=== PATIENT | female | born 1985 ===

== ENCOUNTER 2020-07-12 12:00 | Inpatient (IN) | payer BC ==
[2020-07-13] MEDS ORDERED: Lactated Ringers 1,000 ML IV SCH (04:00)
--- NOTE | 2020-07-13 04:03 | US ---
INDICATION: Rupture of membranes, evaluation presentation and ZOYA requested TECHNIQUE: Ultrasound limited OB pelvis transabdominal. Real-time bermudez-scale imaging of the fetus was performed. COMPARISON: None FINDINGS: Sonographic imaging demonstrates a single intrauterine gestation. heart rate: 140 bpm Orientation: Breech Placenta: Fundal Amniotic fluid: Subjectively normal with single deepest pocket (SDP) 2.6 cm with ZOYA of 4.9 cm. Cervix: Not visualized IMPRESSION: 1. Single viable intrauterine with breech presentation and ZOYA of 4.9 cm. Dictated by Yusuf Larose MD @ 07/13/2020 4:01:46 AM Dictated by: Yusuf Larose MD @ 07/13/2020 04:01:51 (Electronically Signed)
[2020-07-13] MEDS ORDERED: Morphine PF 10 MG/10 ML SDV ONE (04:33)
[2020-07-13] MEDS ORDERED: Citric Acid/Sodium Citrate Solution 30 ML Cup PO ONE (04:41)
[2020-07-13] MEDS ORDERED: Ketorolac 30 MG/ML SDV ONE (04:44)
[2020-07-13] MEDS ORDERED: Phenylephrine 1% 10 MG/ML SDV ONE (04:44)
[2020-07-13] MEDS ORDERED: ceFAZolin 1 GM Vial ONE (04:44)
[2020-07-13] MEDS ORDERED: Oxytocin 10 Units/1 ML SDV ONE (04:44)
[2020-07-13] MEDS ORDERED: Ondansetron 4 MG/2 ML SDV ONE (04:44)
[2020-07-13] MEDS ORDERED: Sodium Chloride 0.9% 20 ML ONE (04:44)
[2020-07-13] MEDS ORDERED: Oxytocin/0.9 % Sodium Chloride 30 UNIT/500 ML BAG IV SCH (04:45)
--- NOTE | 2020-07-13 04:53 | PCM.LDHP ---
L&D History of Present Illness - General Date of Service: 07/13/20 Admit Problem/Dx: Patient Status Order with Admit Dx/Problem 07/13/20 02:24 Patient Status [ADT] Routine 07/13/20 03:40 Patient Status [ADT] Routine Admission Diagnosis/Problem Admission Diagnosis/Problem Source of Information: Patient History Limitations: Reports: No Limitations - History of Present Illness Introduction:: 35 year old at 38w4d (IGNACIO 07/23/2020) presented to labor and delivery this morning with spontaneous rupture of membranes. Noted clear fluid, denies abdominal pain, vaginal bleeding or malodorous discharge. Reports good movement. complicated by insulin dependent gestational diabetes and maternal obesity. 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 Review of Systems - Review of Systems: Review Of Systems: See Below General: Reports: No Symptoms HEENT: Reports: No Symptoms Pulmonary: Reports: No Symptoms Cardiovascular: Reports: No Symptoms Gastrointestinal: Reports: No Symptoms Genitourinary: Reports: No Symptoms Musculoskeletal: Reports: No Symptoms Skin: Reports: No Symptoms Psychiatric: Reports: No Symptoms Neurological: Reports: No Symptoms Hematologic/Lymphatic: Reports: No Symptoms Immunologic: Reports: No Symptoms L&D Exam - Exam Exam: See Below - Vital Signs Weight: 270 lb - OB Specific Movement: Active Heart Tones: Present Heart Tones per Min: 130 Heart Rate (FHR) Variability: Moderate (6-25 bmp) Presentation: Breech Estimated Weight: 3600 grams by US - Escalante Score Escalante Score Cervix Position: Posterior Escalante Score Consistency: Firm Escalante Score Effacement: 31-50% Escalante Score Dilation: 1-2 cm Escalante Score Infant's Station: -3 Escalante Score Total: 2 - Exam General: Alert Lungs: Normal Respiratory Effort Cardiovascular: Regular Rate GI/Abdominal Exam: Soft, Non-Tender Genitourinary: Normal external exam Back Exam: Full Range of Motion Extremities: Normal Inspection, Non-Tender, Pedal Edema (1+) Skin: Warm, Dry, Intact Psychiatric: Normal Mood - Patient Data Lab Results Last 24 hrs: Laboratory Results - last 24 hr 07/13/20 07/13/20 Range/Units 02:40 03:43 WBC 11.48 H (4.0-11.0) K/uL RBC 3.73 L (4.30-5.90) M/uL Hgb 11.6 L (12.0-16.0) g/dL Hct 34.8 L (36.0-46.0) % MCV 93.3 (80.0-98.0) fL MCH 31.1 (27.0-32.0) pg MCHC 33.3 (31.0-37.0) g/dL RDW Std Deviation 46.9 (28.0-62.0) fl RDW Coeff of Zehra 14 (11.0-15.0) % Plt Count 250 (150-400) K/uL MPV 10.20 (7.40-12.00) fL Nucleated RBC % 0.0 /100WBC Nucleated RBCs # 0 K/uL Membrane Rupture POSITIVE Result Diagrams: 07/13/20 03:43 Problem List Initiated/Reviewed/Updated: Yes Orders Last 24hrs: Active Orders 24 hr Category Date Time Status Patient Status [ADT] Routine ADT 07/13/20 03:40 Active Notify Provider Vital Signs [RC] PRN Care 07/13/20 04:42 Active Peripheral IV Care [RC] . DIRECTED Care 07/13/20 03:13 Active Procedure Site Prep Instruct [RC] ASDIRECTED Care 07/13/20 04:41 Active Up ad Lydia [RC] ASDIRECTED Care 07/13/20 02:24 Active Verify Patient Consent Obtain [RC] ASDIRECTED Care 07/13/20 04:41 Active Vital Signs [RC] PER UNIT ROUTINE Care 07/13/20 02:24 Active PATIENT RETYPE [BBK] Routine Lab 07/13/20 04:16 Received RPR (SYPHILIS SERO) W/ RFLX [REF] Routine Lab 07/13/20 03:43 Received TYPE AND SCREEN [BBK] Routine Lab 07/13/20 03:43 Results Lactated Ringers [Ringers, Lactated] 1,000 ml Med 07/13/20 04:00 Active IV ASDIRECTED Oxytocin/0.9 % Sodium Chloride [Oxytocin 30 Unit/500 ML Med 07/13/20 04:45 Active -NS] 30 unit in 500 ml IV TITRATE ceFAZolin [Ancef] 3 gm Med 07/13/20 04:41 Active Premix Bag 1 bag IV ONETIME Peripheral IV Insertion Adult [OM.PC] Routine Oth 07/13/20 03:13 Ordered Schedule Procedure [COMM] Per Unit Routine Oth 07/13/20 04:41 Ordered Resuscitation Status Routine Resus Stat 07/13/20 02:24 Ordered Medication Orders Lactated Ringer's (Ringers, Lactated) 1,000 mls @ 150 mls/hr IV ASDIRECTED NAVJOT Last Admin: 07/13/20 04:01 Dose: 150 mls/hr Documented by: MARCOS Oxytocin/Sodium Chloride (Oxytocin 30 Unit/500 Ml-Ns) 30 unit in 500 mls @ 250 mls/hr IV TITRATE NAVJOT Cefazolin Sodium/Dextrose 3 gm (/ Premix) 75 mls @ 100 mls/hr IV ONETIME ONE Stop: 07/13/20 05:25 Assessment/Plan Comment:: Assessment: 35 year old at 38w4d (IGNACIO 07/23/2019) with spontaneous rupture of membranes and breech presentation Plan: - Admit to L&D for primary section due to breech presentation, amnisure positive - Rh positive, rubella immune, GBS negative - Gestational diabetes, on insulin. Bedside glucose 77 - Risks of primary section reviewed with patient including infection, bleeding with rare need for blood transfusion/hysterectomy, injury to surrounding structures and remote risk of . Questions elicited and answered. Anesthesia and nursing staff notified. Plan to proceed with procedure at 0500.
[2020-07-13] MEDS ORDERED: Acetaminophen/oxyCODONE 325-5 MG Tab PO PRN ×2 (05:10→06:51)
[2020-07-13] MEDS ORDERED: Nalbuphine 10 MG/1 ML Vial IVPUSH PRN (05:10)
--- NOTE | 2020-07-13 05:10 | PCM.PREANE ---
Preanesthetic Assessment - Anesthesia/Transfusion/Family Hx Anesthesia History: Prior Anesthesia Without Reaction (prev labor epidurals, no prior c sections) Family History of Anesthesia Reaction: No - Review of Systems General: No Symptoms Pulmonary: No Symptoms Cardiovascular: No Symptoms Gastrointestinal: Abdominal Pain Neurological: No Symptoms Other: Reports: None - Physical Assessment NPO Status Date: 07/12/20 Height: 5 ft 7 in Weight: 122.47 kg ASA Class: 3 Mental Status: Alert & Oriented x3 Airway Class: Mallampati = 2 Dentition: Reports: Normal Dentition ROM/Head Extension: Full Lungs: Clear to Auscultation, Normal Respiratory Effort Cardiovascular: Regular Rate, Regular Rhythm - Lab Values: Laboratory Last Values WBC 11.48 K/uL (4.0-11.0) H 07/13/20 03:43 RBC 3.73 M/uL (4.30-5.90) L 07/13/20 03:43 Hgb 11.6 g/dL (12.0-16.0) L 07/13/20 03:43 Hct 34.8 % (36.0-46.0) L 07/13/20 03:43 MCV 93.3 fL (80.0-98.0) 07/13/20 03:43 MCH 31.1 pg (27.0-32.0) 07/13/20 03:43 MCHC 33.3 g/dL (31.0-37.0) 07/13/20 03:43 RDW Std Deviation 46.9 fl (28.0-62.0) 07/13/20 03:43 RDW Coeff of Zehra 14 % (11.0-15.0) 07/13/20 03:43 Plt Count 250 K/uL (150-400) 07/13/20 03:43 MPV 10.20 fL (7.40-12.00) 07/13/20 03:43 Nucleated RBC % 0.0 /100WBC 07/13/20 03:43 Nucleated RBCs # 0 K/uL 07/13/20 03:43 Membrane Rupture POSITIVE 07/13/20 02:40 Blood Type O POSITIVE 07/13/20 03:43 Antibody Screen NEGATIVE 07/13/20 03:43 - Allergies Allergies/Adverse Reactions: Allergies Allergy/AdvReac Type Severity Reaction Status Date / Time No Known Allergies Allergy Verified 07/13/20 02:26 - Anesthesia Plan Pre-Op Medication Ordered: None - Acknowledgements Anesthesia Type Planned: Spinal Pt an Appropriate Candidate for the Planned Anesthesia: Yes Alternatives and Risks of Anesthesia Discussed w Pt/Guardian: Yes Pt/Guardian Understands and Agrees with Anesthesia Plan: Yes Additional Comments: PMH: insulin dependant gest DM with am glucose of 77 ( asymptomatic), morbid obesity with BMI of 42, breech presentation PLAN : spinal with intrathecal morphine for post op analgesia PreAnesthesia Questionnaire - Past Health History Medical/Surgical History: Denies 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: - HOME MEDS Home Medications: Home Meds Insulin Aspart [NovoLOG] 16 units SQ BIDMEALS 07/13/20 [History] Insulin Aspart [NovoLOG] 18 units SQ DAILY 07/13/20 [History] Insulin Glargine,Hum.Rec.Anlog [Lantus Solostar] 42 unit SQ DAILY 07/13/20 [History] Vitamins Tablet 1 tab PO DAILY 07/13/20 [History] Proair Hfa 90 mcg INH Q6H PRN 07/13/20 [History] - CURRENT (IN HOUSE) MEDS Current Meds: Current Medications Lactated Ringer's (Ringers, Lactated) 1,000 mls @ 150 mls/hr IV ASDIRECTED [facility] Last Admin: 07/13/20 04:01 Dose: 150 mls/hr Documented by: Oxytocin/Sodium Chloride (Oxytocin 30 Unit/500 Ml-Ns) 30 unit in 500 mls @ 250 mls/hr IV TITRATE [facility] Cefazolin Sodium/Dextrose 3 gm (/ Premix) 75 mls @ 100 mls/hr IV ONETIME ONE Stop: 07/13/20 05:25 Discontinued Medications Cefazolin Sodium (Ancef) Confirm Administered Dose 2 gm .ROUTE .STK-MED ONE Stop: 07/13/20 04:45 Citric Acid/Sodium Citrate (Bicitra Solution) 30 ml PO ONETIME ONE Stop: 07/13/20 04:42 Sodium Chloride (Normal Saline) Confirm Administered Dose 20 mls @ as directed .ROUTE .STK-MED ONE Stop: 07/13/20 04:45 Ketorolac Tromethamine (Toradol) Confirm Administered Dose 30 mg .ROUTE .STK-MED ONE Stop: 12/30/20 04:45 Morphine Sulfate (Duramorph Pf) Confirm Administered Dose 10 mg .ROUTE .STK-MED ONE Stop: 07/13/20 04:34 Ondansetron HCl (Zofran) Confirm Administered Dose 4 mg .ROUTE .STK-MED ONE Stop: 07/13/20 04:45 Oxytocin (Pitocin) Confirm Administered Dose 20 unit .ROUTE .STK-MED ONE Stop: 07/13/20 04:45 Phenylephrine HCl (Sagar-Synephrine) Confirm Administered Dose 10 mg .ROUTE .STK- MED ONE Stop: 07/13/20 04:45
[2020-07-13] MEDS ORDERED: Lidocaine 2% 100 MG/5 ML Syringe ONE (05:36)
[2020-07-13] MEDS ORDERED: Lidocaine 2% with EPINEPHrine 1:200,000 20 ML SDV ONE (05:38)
[2020-07-13] MEDS ORDERED: fentaNYL 100 MCG/2 ML SDV ONE ×2 (05:48→06:31)
[2020-07-13] MEDS ORDERED: Propofol 200 MG/20 ML SDV ONE ×2 (05:57→06:17)
[2020-07-13] MEDS ORDERED: fentaNYL 250 MCG/5 ML SDV ONE (06:16)
[2020-07-13] MEDS ORDERED: Ondansetron 4 MG/2 ML SDV IVPUSH PRN (06:51)
[2020-07-13] MEDS ORDERED: Bisacodyl 10 MG Supp RECTAL PRN (06:51)
[2020-07-13] MEDS ORDERED: Lanolin 100% Cream 7 GM Tube TOP PRN (06:51)
[2020-07-13] MEDS ORDERED: Oxytocin 10 Units/1 ML SDV IM PRN (06:51)
[2020-07-13] MEDS ORDERED: diphenhydrAMINE 50 MG/ML SDV IVPUSH PRN (06:51)
[2020-07-13] MEDS ORDERED: Glucagon,Human Recombinant 1 MG Vial IM PRN (06:56)
[2020-07-13] MEDS ORDERED: 50% Dextrose in Water 50 ML Syringe IV PRN (06:56)
[2020-07-13] MEDS ORDERED: Naloxone 0.4 MG/ML SDV IVPUSH PRN (06:58)
[2020-07-13] MEDS ORDERED: Oxytocin/Lactated Ringers 30 UNIT/500 ML BAG IV SCH (07:00)
[2020-07-13] MEDS ORDERED: fentaNYL 100 MCG/2 ML SDV IVPUSH PRN (07:04)
[2020-07-13] MEDS ORDERED: Morphine 2 MG/ML SYRINGE IVPUSH PRN (07:04)
--- NOTE | 2020-07-13 07:04 | PCM.OPNOTE ---
- General Post-Op/Procedure Note Date of Surgery/Procedure: 07/13/20 Operative Procedure(s): Primary lower transverse section Findings: Normal appearing male infant in leeanna breech presentation. Clear amniotic fluid. APGARs 8/8. Weight not yet available. Normal appearing uterus, fallopian tubes and ovaries. Pre Op Diagnosis: 1. TIUP at 38w4d. 2. Gestational diabetes, insulin dependent. 3. Breech presentation. 4. Maternal obesity. 5. Grandmultiparity. 6. History of asthma Post-Op Diagnosis: 1. TIUP at 38w4d. 2. Gestational diabetes, insulin dependent. 3. Breech presentation. 4. Maternal obesity. 5. Grandmultiparity. 6. History of asthma Anesthesia Technique: Epidural, General ET Tube Primary Surgeon: Patricia Paul Anesthesia Provider: Earle Mota Radiator Mechanic: Joana Hedrick Reason Radiator Mechanic Was Necessary: Maternal obesity Fluid Replacement, Intraop: 1,500 Output, Urine Amount: 200 (clear urine) EBL in mLs: 600 Complications: None known Condition: Good Free Text/Narrative:: Dictation #[id number]
[2020-07-13] MEDS ORDERED: Acetaminophen 1,000 MG in Premix Bag 1 BAG IV PRN (07:05)
[2020-07-13] MEDS: fentaNYL 100 MCG/2 ML SDV IVPUSH PRN ×3 (07:12→07:41)
--- NOTE | 2020-07-13 07:34 | PCM.POSTAN ---
POST ANESTHESIA ASSESSMENT - MENTAL STATUS Mental Status: Alert, Oriented - VITAL SIGNS Vital Signs: Last Vital Signs Temp 36.1 C 07/13/20 06:59 Pulse 96 07/13/20 06:59 Resp 16 07/13/20 06:59 BP 125/84 07/13/20 06:59 Pulse Ox 99 07/13/20 06:59 - RESPIRATORY Respiratory Status: Respiratory Rate WNL - CARDIOVASCULAR CV Status: Pulse Rate WNL - GASTROINTESTINAL GI Status: No Symptoms - POST OP HYDRATION Hydration Status: Adequate & Stable
[2020-07-13] MEDS ORDERED: Morphine Sulfate in 0.9 % NaCl 50 MG/50 ML PCA Bag IV SCH ×2 (08:15→08:30)
[2020-07-13] MEDS ORDERED: MORPHINE IV SCH (08:15)
[2020-07-13] MEDS ORDERED: SODIUM CHLORIDE 0.9% IV SCH (08:15)
--- NOTE | 2020-07-13 08:37 | OR ---
SURGEON: PATRICIA PAUL MD DATE OF PROCEDURE: 07/13/2020 PREOPERATIVE DIAGNOSES: 1. Term intrauterine at 38 weeks and 4 days gestation. 2. Gestation diabetes, insulin dependent. 3. Breech presentation. 4. Maternal obesity. 5. Grand multiparity. 6. History of asthma. POSTOPERATIVE DIAGNOSES: 1. Term intrauterine at 38 weeks and 4 days gestation. 2. Gestation diabetes, insulin dependent. 3. Breech presentation. 4. Maternal obesity. 5. Grand multiparity. 6. History of asthma. PROCEDURE: Primary low-transverse section. PRIMARY SURGEON: Patricia Paul MD LITHODUPLICATOR OPERATOR: Joana Hedrick MD ANESTHESIA: Epidural anesthesia was placed with some difficulty. However, pain relief was not adequate, so the patient was placed under general anesthesia with an endotracheal tube. COMPLICATIONS: None known. ESTIMATED BLOOD LOSS: 600 mL. INTRAVENOUS FLUIDS: 1500 mL of crystalloid. URINE OUTPUT: 200 mL of clear urine at the end of the procedure. INDICATIONS: A 35-year-old 11, para 5, at 38 weeks and 4 days, presented to Labor and Delivery with spontaneous rupture of membranes of clear fluid and dilated to 1 to 2 cm. The fetus was found to be in a leeanna breech presentation. Decision was made to proceed with a primary low-transverse section. FINDINGS: A normal-appearing male in a leeanna breech presentation. Clear amniotic fluid. scores 8 and 8. Weight is not yet available. Normal-appearing uterus, bilateral ovaries and fallopian tubes. PROCEDURE IN DETAIL: The patient was taken to the operating room, where epidural anesthesia was placed with some difficulty; however, pain relief was not adequate, so the patient was then placed under general anesthesia with endotracheal tube intubation. She was prepped and draped in normal sterile fashion and in dorsal supine position with a leftward tilt. A skin incision was made with a scalpel and carried out to the underlying layer of fascia with the Bovie cautery, which was incised in the midline. The fascial incision was then extended laterally using Rios scissors bilaterally. The superior aspect of the fascial incision was then grasped with Kevin clamps, elevated, and dissected off the rectus muscles with Mary. The inferior aspect of the fascial incision was then grasped with Kochers and in a likewise manner was elevated and dissected off with Mary. The peritoneum was then entered using blunt dissection with hemostats and sharp dissection with Metzenbaum scissors. It was then extended with good visualization of the bladder. The Horcaio O-Ring was then inserted into the abdominal cavity. The uterine incision was then created in a transverse fashion in the lower uterine segment with a scalpel and extended digitally. Clear fluid was then noted. The infant was found to be in a leeanna breech position with back to maternal left. The 's buttocks were then grasped and delivered through the hysterotomy site. The left lower extremity was then reduced through the hysterotomy, followed by the right. The infant's abdomen was then wrapped in a wet towel and elevated. The 's left arm was then reduced across his chest and delivered, followed in a similar fashion with the right. The head delivered with slight flexion, atraumatically. The 's nose and mouth were suctioned with a bulb. The cord was clamped, cut, and handed off to the waiting hospitalist and nursing staff. The placenta was then expressed, the uterus exteriorized, and the abdomen cleared of all clots and debris. The uterine incision was then repaired in a running locked fashion with 0 Monocryl. A small extension in the lower uterine segment was noted on the left lateral portion of the incision and was reapproximated with 0 Monocryl. Excellent hemostasis was noted. The uterus was then returned to the abdomen. The gutters were cleared of all clots and debris. The Horacio O was then removed. The fascia was then closed with 0 Vicryl in a running fashion. The incision was irrigated and hemostasis assured. The subcutaneous tissue was closed with 2-0 plain gut. The skin was closed with 3-0 Vicryl on a Pee needle. Sponge, lap, and needle counts were correct x2. Prophylactic antibiotics were given prior to the procedure. The patient was then transferred to the recovery room, Labor and Delivery, in stable condition. FIONA / DAX /[id number] BECK
[2020-07-13] MEDS: Lactated Ringers 1,000 ML IV SCH ×2 (08:47→17:22)
[2020-07-13] MEDS: Insulin Aspart 100 Units/ML 3 ML Pen SUBCUT SCH ×2 (10:45→17:07)
[2020-07-13] MEDS: Ketorolac 30 MG/ML SDV IVPUSH SCH ×3 (13:28→20:30)
[2020-07-13] MEDS: Docusate Sodium 100 MG Cap PO SCH (20:31)
[2020-07-13] MEDS ORDERED: Insulin Glargine,Human Rec. Analog 100 Units/ML 3 ML Pen SUBCUT SCH (21:00)
[2020-07-14] MEDS: Ketorolac 30 MG/ML SDV IVPUSH SCH ×2 (02:00→07:20)
[2020-07-14] MEDS ORDERED: Lactated Ringers 1,000 ML IV SCH (02:15)
--- NOTE | 2020-07-14 03:02 | PCM.PNPP ---
- General Info Date of Service: 07/14/20 Subjective Update: Patient reports feeling sore but is otherwise doing well. Tolerating oral intake. Bowles catheter recently removed, has not attempted to void yet. Functional Status: Reports: Tolerating Diet - Review of Systems General: Reports: No Symptoms HEENT: Reports: No Symptoms Pulmonary: Reports: No Symptoms Cardiovascular: Reports: No Symptoms Gastrointestinal: Reports: Abdominal Pain Genitourinary: Reports: No Symptoms Musculoskeletal: Reports: No Symptoms Skin: Reports: No Symptoms Neurological: Reports: No Symptoms Psychiatric: Reports: No Symptoms - Patient Data Vital Signs - Most Recent: Last Vital Signs Temp 36.3 C 07/14/20 00:30 Pulse 63 07/14/20 02:00 Resp 18 07/14/20 02:00 BP 129/80 07/14/20 00:30 Pulse Ox 96 07/14/20 01:00 Weight - Most Recent: 122.47 kg I&O - Last 24 Hours: Intake & Output 07/13/20 07/13/20 07/14/20 14:59 22:59 06:59 Intake Total 3300 Output Total 600 Balance 2700 Lab Results - Last 24 Hours: Laboratory Results - last 24 hr 07/13/20 07/13/20 07/13/20 Range/Units 03:43 03:43 04:03 WBC 11.48 H (4.0-11.0) K/uL RBC 3.73 L (4.30-5.90) M/uL Hgb 11.6 L (12.0-16.0) g/dL Hct 34.8 L (36.0-46.0) % MCV 93.3 (80.0-98.0) fL MCH 31.1 (27.0-32.0) pg MCHC 33.3 (31.0-37.0) g/dL RDW Std Deviation 46.9 (28.0-62.0) fl RDW Coeff of Zehra 14 (11.0-15.0) % Plt Count 250 (150-400) K/uL MPV 10.20 (7.40-12.00) fL Nucleated RBC % 0.0 /100WBC Nucleated RBCs # 0 K/uL POC Glucose 77 (60-110) mg/dL Blood Type O POSITIVE Antibody Screen NEGATIVE 07/13/20 07/13/20 07/13/20 Range/Units 08:06 10:44 11:19 WBC (4.0-11.0) K/uL RBC (4.30-5.90) M/uL Hgb (12.0-16.0) g/dL Hct (36.0-46.0) % MCV (80.0-98.0) fL MCH (27.0-32.0) pg MCHC (31.0-37.0) g/dL RDW Std Deviation (28.0-62.0) fl RDW Coeff of Zehra (11.0-15.0) % Plt Count (150-400) K/uL MPV (7.40-12.00) fL Nucleated RBC % /100WBC Nucleated RBCs # K/uL POC Glucose 106 76 95 (60-110) mg/dL Blood Type Antibody Screen 07/13/20 07/13/20 07/13/20 Range/Units 14:39 15:51 20:42 WBC (4.0-11.0) K/uL RBC (4.30-5.90) M/uL Hgb (12.0-16.0) g/dL Hct (36.0-46.0) % MCV (80.0-98.0) fL MCH (27.0-32.0) pg MCHC (31.0-37.0) g/dL RDW Std Deviation (28.0-62.0) fl RDW Coeff of Zehra (11.0-15.0) % Plt Count (150-400) K/uL MPV (7.40-12.00) fL Nucleated RBC % /100WBC Nucleated RBCs # K/uL POC Glucose 62 84 120 H (60-110) mg/dL Blood Type Antibody Screen Med Orders - Current: Current Medications Bisacodyl (Dulcolax) 10 mg RECTAL ONETIME PRN PRN Reason: Constipation Dextrose/Water (Dextrose 50% In Water) 50 ml IV ASDIRECTED PRN PRN Reason: Hypoglycemia Diphenhydramine HCl (Benadryl) 25 mg IVPUSH Q6H PRN PRN Reason: Itching or Nausea Docusate Sodium (Colace) 100 mg PO BID [facility] Last Admin: 07/13/20 20:31 Dose: 100 mg Documented by: Emollient Ointment (Lansinoh Hpa) 0 gm TOP ASDIRECTED PRN PRN Reason: Sore Nipples Fentanyl (Sublimaze) 50 mcg IVPUSH Q5M PRN PRN Reason: Pain (severe 7-10) Stop: 07/14/20 05:11 Last Admin: 07/13/20 07:41 Dose: 50 mcg Documented by: Glucagon (Glucagen) 1 mg IM ASDIRECTED PRN PRN Reason: Hypoglycemia Oxytocin/Sodium Chloride (Oxytocin 30 Unit/500 Ml-Ns) 30 unit in 500 mls @ 250 mls/hr IV TITRATE [facility] Oxytocin/Lactated Ringer's (Pitocin In Lr 30 Units/500 Ml) 30 unit in 500 mls @ 999 mls/hr IV TITRATE [facility]; Protocol Lactated Ringer's (Ringers, Lactated) 1,000 mls @ 50 mls/hr IV ASDIRECTED [facility] Ibuprofen (Motrin) 800 mg PO Q8H PRN PRN Reason: mild pain or fever Insulin Aspart (Novolog) 0 unit SUBCUT TIDAC [facility] Last Admin: 07/13/20 17:07 Dose: Not Given Documented by: Insulin Glargine (Lantus Solostar) 20 units SUBCUT BEDTIME [facility] Last Admin: 07/13/20 22:06 Dose: 20 units Documented by: Ketorolac Tromethamine (Toradol) 30 mg IVPUSH Q6H [facility] Stop: 07/14/20 07:01 Last Admin: 07/14/20 02:00 Dose: 30 mg Documented by: Morphine Sulfate/Sodium Chloride (Morphine-Ns 50 Mg/50 Ml) 0 mg IV ASDIRECTED S ; Protocol Last Admin: 07/13/20 09:05 Dose: 1 mg Documented by: Naloxone HCl (Narcan) 0.4 mg IVPUSH Q2M PRN PRN Reason: Respiratory Distress Ondansetron HCl (Zofran) 4 mg IVPUSH Q4H PRN PRN Reason: Nausea/Vomiting Oxycodone/Acetaminophen (Percocet 325-5 Mg) 1 tab PO ONETIME PRN PRN Reason: Pain (moderate 4-6) Oxycodone/Acetaminophen (Percocet 325-5 Mg) 1 tab PO Q4H PRN PRN Reason: Pain (moderate 4-6) Oxycodone/Acetaminophen (Percocet 325-5 Mg) 2 tab PO Q4H PRN PRN Reason: Pain (moderate 4-6) Oxytocin (Pitocin) 10 unit IM ASDIRECTED PRN PRN Reason: Excessive Vaginal Bleeding Discontinued Medications Cefazolin Sodium (Ancef) Confirm Administered Dose 2 gm .ROUTE .STK-MED ONE Stop: 07/13/20 04:45 Citric Acid/Sodium Citrate (Bicitra Solution) 30 ml PO ONETIME ONE Stop: 07/13/20 04:42 Fentanyl (Sublimaze) Confirm Administered Dose 100 mcg .ROUTE .STK-MED ONE Stop: 07/13/20 05:49 Fentanyl (Sublimaze) Confirm Administered Dose 250 mcg .ROUTE .STK-MED ONE Stop: 07/13/20 06:17 Fentanyl (Sublimaze) Confirm Administered Dose 100 mcg .ROUTE .STK-MED ONE Stop: 07/13/20 06:32 Fentanyl (Sublimaze) 50 mcg IVPUSH Q5M PRN PRN Reason: Pain Lactated Ringer's (Ringers, Lactated) 1,000 mls @ 150 mls/hr [facility] Last Admin: 07/13/20 04:01 Dose: 150 mls/hr Documented by: Cefazolin Sodium/Dextrose 3 gm (/ Premix) 75 mls @ 100 mls/hr IV ONETIME ONE Stop: 07/13/20 05:25 Sodium Chloride (Normal Saline) Confirm Administered Dose 20 mls @ as directed .ROUTE .STK-MED ONE Stop: 07/13/20 04:45 Lactated Ringer's (Ringers, Lactated) 1,000 mls @ [facility] Last Admin: 07/13/20 17:22 Dose: 125 mls/hr Documented by: Acetaminophen 1,000 mg/ Premix 100 mls @ 400 mls/hr IV ONETIME PRN PRN Reason: Pain Acetaminophen (Ofirmev) Confirm Administered Dose 100 mls @ as directed .ROUTE .STK-MED ONE Stop: 07/13/20 07:09 Last Admin: 07/13/20 07:32 Dose: 400 mls/hr Documented by: Ketorolac Tromethamine (Toradol) Confirm Administered Dose 30 mg .ROUTE .STK-MED ONE Stop: 07/13/20 04:45 Lidocaine HCl (Xylocaine 2%) Confirm Administered Dose 100 mg .ROUTE .STK-MED ONE Stop: 07/13/20 05:37 Lidocaine/Epinephrine (Xylocaine-Mpf 2%-Epi 1:200,000) Confirm Administered Dose 20 ml .ROUTE .STK-MED ONE Stop: 07/13/20 05:39 Morphine Sulfate (Duramorph Pf) Confirm Administered Dose 10 mg .ROUTE .STK-MED ONE Stop: 07/13/20 04:34 Nalbuphine HCl (Nubain) 2.5 mg IVPUSH Q3H PRN PRN Reason: Pruritis Stop: 07/14/20 05:11 Ondansetron HCl (Zofran) Confirm Administered Dose 4 mg .ROUTE .STK-MED ONE Stop: 07/13/20 04:45 Oxytocin (Pitocin) Confirm Administered Dose 20 unit .ROUTE .STK-MED ONE Stop: 07/13/20 04:45 Phenylephrine HCl (Sagar-Synephrine) Confirm Administered Dose 10 mg .ROUTE .STK- MED ONE Stop: 07/13/20 04:45 Propofol (Diprivan 20 Ml) Confirm Administered Dose 0 mg .ROUTE .STK-MED ONE Stop: 07/13/20 05:58 Propofol (Diprivan 20 Ml) Confirm Administered Dose 200 mg .ROUTE .STK-MED ONE Stop: 07/13/20 06:18 - Interaction Disposition, : [place] to Nursery Infant Feeding: Breastfed ; Nursed Well Support Person: - Recovery Exam Fundal Tone: Firm Fundal Level: 1 Fingerbreadths Below Umbilicus Fundal Placement: Midline Lochia Amount: Scant Bladder Status: Nonpalpable Urinary Elimination: Not Voiding (has not yet voided since catheter removed) - Exam General: Alert, Oriented Neck: Supple Lungs: Normal Respiratory Effort GI/Abdominal Exam: Soft, No Distention, Tender (appropriate tenderness to palpation) Extremities: Non-Tender Skin: Warm, Dry, Intact Wound/Incisions: Dressing Dry and Intact Neurological: No New Focal Deficit Psy/Mental Status: Alert, Normal Affect, Normal Mood - Problem List & Annotations (1) S/P primary low transverse SNOMED Code(s): 187211905, 99526030, 560653771, 529625355, 156727564 Code(s): Z98.891 - HISTORY OF UTERINE SCAR FROM PREVIOUS SURGERY Status: Acute Current Visit: Yes (2) Maternal care for breech presentation, delivered SNOMED Code(s): 18214384, 497706667, 985761283 Code(s): O32.1XX0 - MATERNAL CARE FOR BREECH PRESENTATION, UNSP Status: Acute Current Visit: Yes (3) Gestational diabetes mellitus (GDM) SNOMED Code(s): 08307194 Code(s): O24.419 - GESTATIONAL DIABETES MELLITUS IN , UNSP CONTROL Status: Acute Current Visit: Yes Qualifiers: Gestational diabetes mellitus control: insulin-controlled - Problem List Review Problem List Initiated/Reviewed/Updated: Yes - My Orders Last 24 Hours: My Active Orders 07/13/20 06:51 Patient Status [ADT] Routine Ambulate [RC] PER UNIT ROUTINE Communication Order [RC] PER UNIT ROUTINE Communication Order [RC] PER UNIT ROUTINE Communication Order [RC] Per Unit Routine Intake and Output [RC] Q8H May Shower [RC] ASDIRECTED Notify Provider Intake and Out [RC] ASDIRECTED Notify Provider Vital Signs [RC] ASDIRECTED RT Incentive Spirometry [RC] Q2HWA Urinary Catheter Removal [RC] PER UNIT ROUTINE Acetaminophen/oxyCODONE [Percocet 325-5 MG] 1 tab PO Q4H PRN Acetaminophen/oxyCODONE [Percocet 325-5 MG] 2 tab PO Q4H PRN Ibuprofen [Motrin] 800 mg PO Q8H PRN Lanolin [Lansinoh HPA] See Dose Instructions TOP ASDIRECTED PRN Ondansetron [Zofran] 4 mg IVPUSH Q4H PRN Oxytocin [Pitocin] 10 unit IM ASDIRECTED PRN bisacodyL [Dulcolax] 10 mg RECTAL ONETIME PRN diphenhydrAMINE [Benadryl] 25 mg IVPUSH Q6H PRN Abdominal Binder [OM.PC] Routine Assess Lochia [WOMSER] Per Unit Routine Assess Uterine Involution [WOMSER] Per Unit Routine Breast Pump [WOMSER] Per Unit Routine DVT/VTE Prophylaxis Reflex [OM.PC] Routine Heat Therapy [OM.PC] Routine Ice Therapy [OM.PC] Routine Peripheral IV Discontinue [OM.PC] Routine Sequential Compression Device [OM.PC] Per Unit Routine 07/13/20 06:52 Antiembolic Devices [RC] PER UNIT ROUTINE 12/30/20 06:55 Antiembolic Devices [RC] .Routine VTE/DVT Education [RC] PER UNIT ROUTINE 07/13/20 06:56 Blood Glucose Check, Bedside [RC] TIDMEALS Dextrose 50% in Water 50 ml IV ASDIRECTED PRN Glucagon,Human Recombinant [GlucaGen] 1 mg IM ASDIRECTED PRN 07/13/20 06:58 Communication Order [RC] STAT Notify Provider [RC] PRN Pulse Oximetry [RC] CONTINUOUS Naloxone [Narcan] 0.4 mg IVPUSH Q2M PRN Medication Discontinuation Instructions [OM.PC] Stat 07/13/20 07:00 Ketorolac [Toradol] 30 mg IVPUSH Q6H Oxytocin/Lactated Ringers [Pitocin in LR 30 Units/500 ML] 30 unit in 500 ml IV TITRATE 07/13/20 07:30 Insulin Aspart [NovoLOG] See Dose Instructions SUBCUT TIDAC 07/13/20 08:30 Morphine Sulfate in 0.9 % NaCl [Morphine-Ns 50 mg/50 ml] See Protocol IV ASDIRECTED 07/13/20 Lunch [employer] Diet [DIET] 07/13/20 14:54 Blood Glucose Check, Bedside [RC] DAILY 07/13/20 21:00 Docusate Sodium [Colace] 100 mg PO BID Insulin Glarg,Human.Rec.Analog [LantUS Solostar] 20 units SUBCUT BEDTIME 07/14/20 02:15 Lactated Ringers [Ringers, Lactated] 1,000 ml IV ASDIRECTED 07/14/20 05:11 HEMOGLOBIN/HEMATOCRIT,HH [HEME] Routine - Assessment Assessment:: 35yo P5 s/p 1LTCS at 38w4d for breech presentation and rupture of membranes, POD#1 - Plan Plan:: 1. Continue routine postop care. D/C Bowles this AM. Transition from LIQUID SUGAR FORTIFIER to oral pain medication. 2. Gestational diabetes, suspect type 2 diabetes as diagnosed on early 3hr GTT. Continue Lantus 20U at bedtime, Novolog 8/8/9U with meals. Monitor blood sugars. 3. Plan for discharge home on POD#2 if infant cleared, blood sugars controlled, and pain controlled.
--- NOTE | 2020-07-14 07:29 | PCM48HPAN ---
Post Anesthesia Note - EVALUATION WITHIN 48HRS OF ANESTHETIC Vital Signs in Normal Range: Yes Patient Participated in Evaluation: Yes Respiratory Function Stable: Yes Airway Patent: Yes Cardiovascular Function Stable: Yes Hydration Status Stable: Yes Pain Control Satisfactory: Yes Nausea and Vomiting Control Satisfactory: Yes Mental Status Recovered: Yes Vital Signs: Last Vital Signs Temp 37.1 C 07/14/20 05:00 Pulse 77 07/14/20 05:00 Resp 15 07/14/20 05:00 BP 143/90 H 07/14/20 05:00 Pulse Ox 96 07/14/20 05:00
[2020-07-14] MEDS: Insulin Aspart 100 Units/ML 3 ML Pen SUBCUT SCH ×2 (08:18→11:56)
[2020-07-14] MEDS: Docusate Sodium 100 MG Cap PO SCH ×2 (10:10→21:07)
[2020-07-14] MEDS: Acetaminophen/oxyCODONE 325-5 MG Tab PO PRN ×3 (11:35→21:08)
[2020-07-14] MEDS: Ibuprofen 800 MG Tab PO PRN (14:17)
[2020-07-15] MEDS: Docusate Sodium 100 MG Cap PO SCH (08:02)
[2020-07-15] MEDS: Acetaminophen/oxyCODONE 325-5 MG Tab PO PRN ×2 (08:02→12:01)
[2020-07-15] MEDS: Ibuprofen 800 MG Tab PO PRN (08:02)
--- NOTE | 2020-07-15 10:19 | PCM.PNPP ---
- General Info Date of Service: 07/15/20 Functional Status: Reports: Pain Controlled - Review of Systems General: Reports: No Symptoms HEENT: Reports: No Symptoms Pulmonary: Reports: No Symptoms Cardiovascular: Reports: No Symptoms Gastrointestinal: Reports: No Symptoms Genitourinary: Reports: No Symptoms Musculoskeletal: Reports: No Symptoms Skin: Reports: No Symptoms Neurological: Reports: No Symptoms Psychiatric: Reports: No Symptoms - General Info Date of Service: 07/15/20 - Patient Data Vital Signs - Most Recent: Last Vital Signs Temp 36.3 C 07/15/20 07:45 Pulse 67 07/15/20 07:45 Resp 18 07/15/20 07:45 BP 123/77 07/15/20 07:45 Pulse Ox 98 07/15/20 07:45 Weight - Most Recent: 122.47 kg Lab Results - Last 24 Hours: Laboratory Results - last 24 hr 07/15/20 Range/Units 05:49 POC Glucose 88 (60-110) mg/dL Med Orders - Current: Current Medications Bisacodyl (Dulcolax) 10 mg RECTAL ONETIME PRN PRN Reason: Constipation Dextrose/Water (Dextrose 50% In Water) 50 ml IV ASDIRECTED PRN PRN Reason: Hypoglycemia Diphenhydramine HCl (Benadryl) 25 mg IVPUSH Q6H PRN PRN Reason: Itching or Nausea Docusate Sodium (Colace) 100 mg PO BID [facility]JOT Last Admin: 07/15/20 08:02 Dose: 100 mg Documented by: Emollient Ointment (Lansinoh Hpa) 0 gm TOP ASDIRECTED PRN PRN Reason: Sore Nipples Last Admin: 07/15/20 08:02 Dose: 7 gm Documented by: Glucagon (Glucagen) 1 mg IM ASDIRECTED PRN PRN Reason: Hypoglycemia Oxytocin/Sodium Chloride (Oxytocin 30 Unit/500 Ml-Ns) 30 unit in 500 mls @ 250 mls/hr IV TITRATE [facility] Oxytocin/Lactated Ringer's (Pitocin In Lr 30 Units/500 Ml) 30 unit in 500 mls @ 999 mls/hr IV TITRATE [facility]; Protocol Lactated Ringer's (Ringers, Lactated) 1,000 mls @ 50 mls/hr IV ASDIRECTED [facility] Ibuprofen (Motrin) 800 mg PO Q8H PRN PRN Reason: mild pain or fever Last Admin: 07/15/20 08:02 Dose: 800 mg Documented by: Naloxone HCl (Narcan) 0.4 mg IVPUSH Q2M PRN PRN Reason: Respiratory Distress Ondansetron HCl (Zofran) 4 mg IVPUSH Q4H PRN PRN Reason: Nausea/Vomiting Oxycodone/Acetaminophen (Percocet 325-5 Mg) 1 tab PO Q4H PRN PRN Reason: Pain (moderate 4-6) Last Admin: 07/15/20 08:02 Dose: 1 tab Documented by: Oxycodone/Acetaminophen (Percocet 325-5 Mg) 2 tab PO Q4H PRN PRN Reason: Pain (moderate 4-6) Oxytocin (Pitocin) 10 unit IM ASDIRECTED PRN PRN Reason: Excessive Vaginal Bleeding Discontinued Medications Cefazolin Sodium (Ancef) Confirm Administered Dose 2 gm .ROUTE .STK-MED ONE Stop: 07/13/20 04:45 Citric Acid/Sodium Citrate (Bicitra Solution) 30 ml PO ONETIME ONE Stop: 07/13/20 04:42 Last Admin: 07/14/20 07:10 Dose: Not Given Documented by: Fentanyl (Sublimaze) 50 mcg IVPUSH Q5M PRN PRN Reason: Pain (severe 7-10) Stop: 07/14/20 05:11 Last Admin: 07/13/20 07:41 Dose: 50 mcg Documented by: Fentanyl (Sublimaze) Confirm Administered Dose 100 mcg .ROUTE .STK-MED ONE Stop: 07/13/20 05:49 Fentanyl (Sublimaze) Confirm Administered Dose 250 mcg .ROUTE .STK-MED ONE Stop: 07/13/20 06:17 Fentanyl (Sublimaze) Confirm Administered Dose 100 mcg .ROUTE .STK-MED ONE Stop: 07/13/20 06:32 Fentanyl (Sublimaze) 50 mcg IVPUSH Q5M PRN PRN Reason: Pain Lactated Ringer's (Ringers, Lactated) 1,000 mls @ 150 mls/hr IV ASDIRECTED [facility] Last Admin: 07/13/20 04:01 Dose: 150 mls/hr Documented by: Cefazolin Sodium/Dextrose 3 gm (/ Premix) 75 mls @ 100 mls/hr IV ONETIME ONE Stop: 07/13/20 05:25 Last Admin: 07/14/20 07:10 Dose: Not Given Documented by: Sodium Chloride (Normal Saline) Confirm Administered Dose 20 mls @ as directed .ROUTE .STK-MED ONE Stop: 07/13/20 04:45 Lactated Ringer's (Ringers, Lactated) 1,000 mls @ 125 mls/hr IV ASDIRECTED [facility] Last Admin: 07/13/20 17:22 Dose: 125 mls/hr Documented by: Acetaminophen 1,000 mg/ Premix 100 mls @ 400 mls/hr IV ONETIME PRN PRN Reason: Pain Acetaminophen (Ofirmev) Confirm Administered Dose 100 mls @ as directed .ROUTE .STK-MED ONE Stop: 07/13/20 07:09 Last Admin: 07/13/20 07:32 Dose: 400 mls/hr Documented by: Insulin Aspart (Novolog) 0 unit SUBCUT TIDAC [facility] Last Admin: 07/14/20 11:56 Dose: Not Given Documented by: Insulin Glargine (Lantus Solostar) 20 units SUBCUT BEDTIME [facility] Last Admin: 07/13/20 22:06 Dose: 20 units Documented by: Ketorolac Tromethamine (Toradol) Confirm Administered Dose 30 mg .ROUTE .STK-MED ONE Stop: 07/13/20 04:45 Ketorolac Tromethamine (Toradol) 30 mg IVPUSH Q6H [facility] Stop: 07/14/20 07:01 Last Admin: 07/14/20 07:20 Dose: 30 mg Documented by: Lidocaine HCl (Xylocaine 2%) Confirm Administered Dose 100 mg .ROUTE .STK-MED ONE Stop: 07/13/20 05:37 Lidocaine/Epinephrine (Xylocaine-Mpf 2%-Epi 1:200,000) Confirm Administered Dose 20 ml .ROUTE .STK-MED ONE Stop: 07/13/20 05:39 Morphine Sulfate (Duramorph Pf) Confirm Administered Dose 10 mg .ROUTE .STK-MED ONE Stop: 07/13/20 04:34 Morphine Sulfate/Sodium Chloride (Morphine-Ns 50 Mg/50 Ml) 0 mg IV ASDIRECTED S ; Protocol Last Admin: 07/13/20 09:05 Dose: 1 mg Documented by: Nalbuphine HCl (Nubain) 2.5 mg IVPUSH Q3H PRN PRN Reason: Pruritis Stop: 07/14/20 05:11 Ondansetron HCl (Zofran) Confirm Administered Dose 4 mg .ROUTE .STK-MED ONE Stop: 07/13/20 04:45 Oxycodone/Acetaminophen (Percocet 325-5 Mg) 1 tab PO ONETIME PRN PRN Reason: Pain (moderate 4-6) Oxytocin (Pitocin) Confirm Administered Dose 20 unit .ROUTE .STK-MED ONE Stop: 07/13/20 04:45 Phenylephrine HCl (Sagar-Synephrine) Confirm Administered Dose 10 mg .ROUTE .STK- MED ONE Stop: 07/13/20 04:45 Propofol (Diprivan 20 Ml) Confirm Administered Dose 0 mg .ROUTE .STK-MED ONE Stop: 07/13/20 05:58 Propofol (Diprivan 20 Ml) Confirm Administered Dose 200 mg .ROUTE .STK-MED ONE Stop: 07/13/20 06:18 - Infant Interaction Infant Disposition, : to Nursery Feeding: Breastfed Infant; Nursed Well Support Person: - Recovery Exam Fundal Tone: Firm Fundal Level: 1 Fingerbreadths Below Umbilicus Fundal Placement: Midline Lochia Amount: Scant Lochia Color: Rubra/Red Perineum Description: Intact, Minimal Bruising/Swelling Episiotomy/Laceration: None Bladder Status: Voiding Urinary Elimination: Not Voiding (has not yet voided since catheter removed) - Exam General: Alert, Oriented Neck: Supple Lungs: Clear to Auscultation, Normal Respiratory Effort Cardiovascular: Regular Rate GI/Abdominal Exam: Normal Bowel Sounds, Soft, Non-Tender Extremities: Pedal Edema (1+ equal bilaterally) Skin: Warm, Dry, Intact Wound/Incisions: Healing Well Neurological: No New Focal Deficit Psy/Mental Status: Alert, Normal Affect, Normal Mood - Problem List & Annotations (1) Gestational diabetes mellitus (GDM) SNOMED Code(s): 27455115 Code(s): O24.419 - GESTATIONAL DIABETES MELLITUS IN , UNSP CONTROL Status: Acute Current Visit: Yes Qualifiers: Gestational diabetes mellitus control: insulin-controlled (2) Maternal care for breech presentation, delivered SNOMED Code(s): 78559605, 497497618, 606407996 Code(s): O32.1XX0 - MATERNAL CARE FOR BREECH PRESENTATION, UNSP Status: Acute Current Visit: Yes (3) S/P primary low transverse SNOMED Code(s): 488261063, 72553625, 674982609, 399735001, 060949882 Code(s): Z98.891 - HISTORY OF UTERINE SCAR FROM PREVIOUS SURGERY Status: Acute Current Visit: Yes - Problem List Review Problem List Initiated/Reviewed/Updated: Yes - My Orders Last 24 Hours: My Active Orders 07/15/20 10:12 Ready for Discharge [RC] PER UNIT ROUTINE - Assessment Assessment:: 35yo P5 s/p 1LTCS at 38w4d for breech presentation and rupture of membranes, POD#2 gestational diabetes fasting glucose - Plan Plan:: Dismiss to home today, discharge instructions reviewed. Will get 2 our GTT at 6 weeks .
[2020-07-15] MEDS ORDERED: Acetaminophen/oxyCODONE 325-5 MG Tab PO STA (10:27)
== END 2020-07-15 13:44 | disposition home or self-care (01) | DRG 540 ==
LOC: MW.OB 07-13 02:22
PROVIDERS: ADMIT Obstetrics & Gynecology; ATTEND Obstetrics & Gynecology
PROC: 10D00Z1 Extraction of Products of Conception, Low, Open Approach (ICD-10-PCS; principal; 2020-07-13)
DX: O32.1XX0 Maternal care for breech presentation, not applicable or unspecified (principal); Z37.0 Single live birth; O24.424 Gestational diabetes mellitus in childbirth, insulin controlled; O99.214 Obesity complicating childbirth; E66.9 Obesity, unspecified; Z3A.38 38 weeks gestation of pregnancy
CPT/HCPCS: 01961; 36415; 51702; 59025; 76815; 76815-26; 82962; 84112; 85014; 85018; 85027; 86592; 86850; 86900; 86901; A9270-GY; J0131; J0690; J1815-GY; J1885; J2001; J2270; J2370; J2405; J2590; J2704; J3010; J7120